=== PATIENT | female | born 1990 | race Hispanic/Latino ===

== ENCOUNTER 2021-10-06 19:43 | Inpatient (IN) | payer MEDICAID, OTHER, SELFPAY ==
[2021-10-06] MEDS ORDERED: Ibuprofen 800 MG TAB PO PRN (22:02)
[2021-10-06] MEDS ORDERED: Misoprostol 200 MCG TAB PR PRN (22:02)
[2021-10-06] MEDS ORDERED: Lidocaine 1% (PF) 30 ML VIAL SC PRN (22:02)
[2021-10-06] MEDS ORDERED: Carboprost 250 MCG/ML AMP IM PRN (22:02)
[2021-10-06] MEDS ORDERED: Methylergonovine 0.2 MG/ML VIAL IM PRN (22:02)
[2021-10-06] MEDS ORDERED: Promethazine HCl 25 MG/ML VIAL IM PRN (22:03)
[2021-10-06] MEDS ORDERED: Ondansetron PF 4 MG/2 ML Vial IVP PRN (22:03)
[2021-10-06] MEDS ORDERED: Acetaminophen 500 MG TAB PO PRN (22:03)
[2021-10-06] MEDS ORDERED: Butorphanol Tartrate 1 MG/ML VIAL SLOW IVP PRN (22:03)
[2021-10-06 22:48] LABS: Hemoglobin 13.1 g/dL (12.0-15.5); Mean Corpuscular HGB CONC 34.7 g/dL (32.0-36.0); Mean Corpuscular Volume 86.7 fl (81.6-98.3); Mean Platelet Volume 12.8 fl (7.4-10.4); Platelet Count 198 10x3/uL (150-450); RBC Distribution Width 12.9 % (11.5-14.5); Red Blood Cell (RBC) Count 4.36 10x6/uL (3.90-5.03); White Blood Cell (WBC) Count 9.6 10x3/uL (3.5-10.5)
[2021-10-06 23:00] LABS: ALT (SGPT) 18 U/L (8-55); AST (SGOT) 20 U/L (5-34); Albumin 3.6 g/dL (3.5-5.0); Alkaline Phosphatase 129 U/L (40-110); Anion Gap 15 mmol/L (10-20); BUN (Urea Nitrogen) 8 mg/dL (7.0-18.7); Bilirubin, Total 0.3 mg/dL (0.2-1.2); Calc. Creatinine Clearance 0 mL/min (70-130); Calcium 9.3 mg/dL (7.8-10.44); Carbon Dioxide 17 mmol/L (22-29); Chloride 102 mmol/L (98-107); Globulin 2.8 g/dL (2.4-3.5); Glucose 83 mg/dL (70-105); Potassium 4.5 mmol/L (3.5-5.1); Protein, Total 6.4 g/dL (6.0-8.3); Sodium 129 mmol/L (136-145)
[2021-10-06 23:14] VITALS: BMI 42.8
[2021-10-06 23:22] LABS: Syphilis Antibody Nonreactive (Nonreactive); Syphilis Antibody Index 0.06 S/CO (<1.00 Non-Reactive)
[2021-10-06 23:23] LABS: Hep B Surf Ag Non-Reactive S/CO (NonReactive)
[2021-10-06 23:27] LABS: HBSAg Index 0.15 S/CO (0-0.99)
[2021-10-06] MEDS ORDERED: NS w/ Oxytocin 30 units 500 ML IV SCH (23:59)
[2021-10-07] MEDS ORDERED: Penicillin G Potassium 5 MILL.UNITS VIAL ONE (01:57)
[2021-10-07] MEDS: NS w/ Oxytocin 30 units 500 ML IVPB SCH ×2 (02:17→19:30)
[2021-10-07 05:56] LABS: Creatinine, Urine 53.74 mg/dL (47-110)
[2021-10-07] MEDS ORDERED: Methylergonovine 0.2 MG/ML VIAL ONE (07:09)
[2021-10-07] MEDS: Penicillin G 2.5 MILL.units 2.5 MILL.UNITS in Premix Bag 1 BAG IVPB SCH ×4 (07:22→22:39)
[2021-10-07 07:33] LABS: SARS-CoV-2 NAA Rapid Test Not Detected (NotDetected)
[2021-10-07] MEDS: hydrALAZINE 20 MG/ML VIAL SLOW IVP PRN ×2 (08:42→09:05)
[2021-10-07] MEDS ORDERED: Magnesium Sulfate 20 gm/500 ml 20 GM/500 ML BAG ONE (09:01)
[2021-10-07] MEDS ORDERED: Magnesium Sulfate 20 gm/500 ml 4 GM/100 ML BAG IVPB SCH (09:30)
[2021-10-07] MEDS ORDERED: Magnesium Sulfate 20 gm/500 ml 20 GM/500 ML BAG IVPB SCH (09:30)
[2021-10-07] MEDS ORDERED: Fentanyl 2 mcg/Bup 0.1% Cadd 100 ML ONE (09:51)
[2021-10-07 09:53] LABS: HIV (1/2) Antibody/Antigen Non-Reactive (NonReactive); HIV 1/2 INDEX 0.14 S/CO (<1.00)
[2021-10-07] MEDS: Fentanyl 2 mcg/Bupivacaine 0.1% Cassette 100 ML EPIDURAL SCH ×2 (10:36→17:11)
[2021-10-07] MEDS ORDERED: PHENYLEPHRINE-NS 100 MCG/ML 10 ML SYRINGE ONE (10:52)
[2021-10-07] MEDS ORDERED: Acetaminophen 325 MG TAB PO PRN (10:57)
[2021-10-07] MEDS ORDERED: Ondansetron PF 4 MG/2 ML Vial IVP PRN (10:57)
[2021-10-07] MEDS ORDERED: Promethazine HCl 25 MG/ML VIAL IM PRN (10:57)
[2021-10-07] MEDS ORDERED: Hydrocerin (Eucerin) Cream 120 gm Jar TOP PRN (10:57)
[2021-10-07] MEDS ORDERED: diphenhydrAMINE 50 MG/ML VIAL IVP PRN (10:57)
[2021-10-07] MEDS ORDERED: Naloxone HCl 0.4 mg/ml Vial IVP PRN ×2 (10:57)
[2021-10-07] MEDS ORDERED: Lactated Ringer's 500 ML IV PRN (10:57)
[2021-10-07] MEDS ORDERED: ePHEDrine Sulfate 50 MG/10 ML VIAL SLOW IVP PRN (10:57)
[2021-10-07] MEDS ORDERED: Communication Order-Pharmacy FS SCH (11:00)
[2021-10-07] MEDS ORDERED: Bupivacaine 0.75% W/DEXTROSE 8.25% 2 ML AMP ONE (11:37)
[2021-10-07] MEDS ORDERED: PROPOFOL 0 ML ONE (12:16)
[2021-10-07] MEDS ORDERED: Fentanyl 100 MCG/2 ML VIAL ONE (12:16)
[2021-10-07] MEDS ORDERED: Succinylcholine 200 MG/10 ml SYRINGE FS ONE (12:17)
[2021-10-07] MEDS ORDERED: Dexamethasone 4 mg/ml Vial ONE (12:17)
[2021-10-07] MEDS ORDERED: Ondansetron PF 4 MG/2 ML Vial ONE (12:17)
[2021-10-07] MEDS ORDERED: Morphine PF 10 MG/10 ML VIAL ONE (12:33)
[2021-10-07] MEDS ORDERED: Oxytocin 10 UNITS/ML VIAL ONE (12:49)
[2021-10-07] MEDS ORDERED: Tranexamic Acid 1,000 MG/10 ML VIAL ONE (18:51)
[2021-10-07] MEDS ORDERED: hydrALAZINE 20 MG/ML VIAL SLOW IVP PRN (22:20)
[2021-10-07] MEDS ORDERED: Bisacodyl 10 MG SUPP PR PRN (22:20)
[2021-10-07] MEDS ORDERED: Lanolin Ointment 7 GM TUBE TOP PRN (22:20)
[2021-10-07] MEDS ORDERED: Preparation H Ointment 28 GM TUBE PR PRN (22:20)
[2021-10-07] MEDS ORDERED: HYDROcodone/Acetaminophen 5/325 mg Tablet PO PRN (22:20)
[2021-10-07] MEDS ORDERED: Furosemide 40 MG/4 ML VIAL SLOW IVP SCH (22:30)
[2021-10-07] MEDS ORDERED: Docusate Calcium (SURFAK) 240 MG CAP PO SCH (22:45)
[2021-10-07] MEDS ORDERED: Ibuprofen 800 MG TAB PO SCH (22:45)
[2021-10-08] MEDS: Ibuprofen 800 MG TAB PO SCH ×3 (05:10→21:41)
[2021-10-08 06:07] LABS: #Monocytes 1.4 10x3/uL (0.0-1.1); #Neutrophils 15.8 10x3/uL (1.5-8.4); %Basophils 0.2 % (0.0-2.0); %Eosinophils 0.1 % (0.0-6.0); %Lymphocytes 12.9 % (18.0-47.0); %Neutrophils 79.3 % (40.0-75.0); Hemoglobin 9.3 g/dL (12.0-15.5); Mean Corpuscular HGB CONC 34.4 g/dL (32.0-36.0); Mean Corpuscular Hemoglobin 30.3 pg (27.0-33.0); Mean Corpuscular Volume 87.9 fl (81.6-98.3); Mean Platelet Volume 12.3 fl (7.4-10.4); Platelet Count 168 10x3/uL (150-450); RBC Distribution Width 13.2 % (11.5-14.5); Red Blood Cell (RBC) Count 3.07 10x6/uL (3.90-5.03); White Blood Cell (WBC) Count 19.8 10x3/uL (3.5-10.5)
[2021-10-08] MEDS: Ferrous Sulfate 325 MG TAB PO SCH ×2 (09:07→17:03)
[2021-10-08] MEDS: Docusate Calcium (SURFAK) 240 MG CAP PO SCH ×2 (09:11→21:40)
[2021-10-08] MEDS: Milk Of Magnesia 30 ML UDCUP PO PRN (09:12)
[2021-10-08] MEDS ORDERED: Benzocaine-Menthol 82.5 ML CAN TOP PRN (21:03)
[2021-10-09] MEDS: Ibuprofen 800 MG TAB PO SCH ×2 (06:52→13:32)
[2021-10-09 07:55] VITALS: BP 149/86; TEMP 98
[2021-10-09] MEDS: Ferrous Sulfate 325 MG TAB PO SCH (08:39)
[2021-10-09] MEDS: Docusate Calcium (SURFAK) 240 MG CAP PO SCH (08:39)
[2021-10-09] MEDS: Milk Of Magnesia 30 ML UDCUP PO PRN (08:39)
== END 2021-10-09 13:50 | disposition home or self-care (01) | DRG 768 ==
LOC: CSHLD 20:54 → CSHPP 10-07 23:20
PROVIDERS: ADMIT Family Medicine; ATTEND Family Medicine
PROC: 10D07Z6 Extraction of Products of Conception, Vacuum, Via Natural or Artificial Opening (ICD-10-PCS; principal; 2021-10-07)
PROC: 0DQR0ZZ Repair Anal Sphincter, Open Approach (ICD-10-PCS; 2021-10-07)
DX: O13.4 Gestational [pregnancy-induced] hypertension without significant proteinuria, complicating childbirth (principal); Z37.0 Single live birth; O98.82 Other maternal infectious and parasitic diseases complicating childbirth; Z20.822 Contact with and (suspected) exposure to COVID-19; Z3A.38 38 weeks gestation of pregnancy; B95.1 Streptococcus, group B, as the cause of diseases classified elsewhere; O75.81 Maternal exhaustion complicating labor and delivery; O76 Abnormality in fetal heart rate and rhythm complicating labor and delivery; O70.20 Third degree perineal laceration during delivery, unspecified; O72.1 Other immediate postpartum hemorrhage; O99.892 Other specified diseases and conditions complicating childbirth; R60.9 Edema, unspecified
CPT/HCPCS: 36415; 51702; 80053; 82570; 84156; 85025; 85027; 86780; 86850; 86900; 86901; 87340; 87389; J0360; J0595; J1100; J1940; J2274; J2405; J2540; J2590; J2704; J3010; J3475; J3490; U0002